=== PATIENT | female | born 1965 | race Caucasian/White ===

== ENCOUNTER 2016-07-25 18:16 | Emergency (ER) | payer MEDICARE | END 2016-07-25 19:17 | disposition home or self-care (01) | LOC: ER1 18:16 | DX: S39.012A Strain of muscle, fascia and tendon of lower back, initial encounter (principal); R73.09 Other abnormal glucose; G89.29 Other chronic pain; Z79.899 Other long term (current) drug therapy; X58.XXXA Exposure to other specified factors, initial encounter | CPT/HCPCS: 82962; 96372; 99284; J1100; J1885 ==